=== PATIENT | female | born 1995 | race Caucasian/White ===

== ENCOUNTER → 2018-04-14 07:04 | Observation (INO) ==
[2018-04-14 05:56] LABS: Amphetamine Screen,Urine Negative ng/mL (Cutoff=1000); Barbiturate Screen,Urine Negative ng/mL (Cutoff=200); Benzodiazepines Screen,Urine Negative ng/mL (Cutoff=200); Cannabinoid Screen,Urine Negative ng/mL (Cutoff = 50); Cocaine Screen,Urine Negative ng/mL (Cutoff= 300); Opiate Screen,Urine Negative ng/mL (Cutoff=300); Phencyclidine Screen,Urine Negative ng/mL (Cutoff=25)
--- NOTE | 2018-04-14 08:16 | Discharge Summary ---
Date of Encounter: 04/14/18 Time of Encounter: 08:12 - Discharge Diagnosis (1) 37 weeks gestation of Priority: Primary Status: Acute Comments: Admit to observation for labor evaluation Patient with complaint of some right sided pain. Irregular contractions noted, cervix FT per RN exam Patient has an appointment for routine care this morning at 0800, will keep this appointment. Normal Vital signs Follow up as scheduled in office (2) NST (non-stress test) reactive Priority: Secondary Status: Acute Comments: 135 bpm, moderate variability, +15x15 accels, no decels. - Discharge Medications Home Medications: Ferrous Sulfate [Iron] 325 mg PO DAILY 04/14/18 [History] Vits96/Iron Fum/Folic [ Tablet] 1 each PO DAILY 04/14/18 [History] valACYclovir [Valtrex] 500 mg PO DAILY 04/14/18 [History] Allergies/Adverse Reactions: 3 Allergy/AdvReac Type Severity Reaction Status Date / Time No Known Allergies Allergy Verified 04/14/18 05:28 Data Procedures and tests throughout hospitalization: Laboratory Tests 04/14/18 05:35 Urine Opiates Screen Negative Ur Barbiturates Screen Negative Ur Phencyclidine Scrn Negative Ur Amphetamines Screen Negative U Benzodiazepines Scrn Negative Urine Cocaine Screen Negative U Marijuana (THC) Screen Negative Ur Drug Screen Interp See Below Labs on day of discharge: Labs from last 24 hours 04/14/18 05:35 Urine Opiates Screen Negative Ur Barbiturates Screen Negative Ur Phencyclidine Scrn Negative Ur Amphetamines Screen Negative U Benzodiazepines Scrn Negative Urine Cocaine Screen Negative U Marijuana (THC) Screen Negative Ur Drug Screen Interp See Below Date of admission: 04/14/18 05:23 Discharging clinician: Susy Yancey Anticipated date of discharge: 04/14/18 - Patient Status Disposition: Home, Self-Care Condition: Good Functional capacity at discharge: independent ambulation Overall status at discharge: patient is progressing back to baseline - Discharge Instructions Additional Instructions: LABOR AND DELIVERY DISCHARGE INSTRUCTIONS Signs and Symptoms to be Reported to your Doctor Immediately: * Sudden gush, continuous or intermittent lead of fluid from vagina (note the time of gush and color of fluid) * Onset of bright red vaginal bleeding with or without pain (if you had a vaginal exam during this visit you may notice some dark red spotting. This is normal.) * Contractions that are 5 minutes apart (from the beginning of one contraction to the beginning of the next) and last 45-60 seonds; contractions that you can no longer walk, talk or laugh through. * A change in the baby's activity. This could be an increase or decrease in activity. * Severe headache which does not go away with tylenol. * Sudden swelling in the face, hands, arms and/or legs. * Upper abdominal pain - sometimes associated with heartburn or nausea and is not relieved by Maalox, Mylanta or Tums. * Kick Counts __ One hour after a meal, lay down on one side in a quiet place. Count the number of time the baby moves during an hour. If less than 6 movements, notify your physician Diet: *Force fluids, 8 to 10 tall glasses of fluid per day - may include popsicles and jello *Limit caffeine - this includes chocolate, coffee, tea, any soft drink containing such as all leon, Satish Yellow and Mountain Dew KEEP APPOINTMENT THIS MORNING IN THE OB OFFICE AT 8:00 AM - Diet and Activity Activity: resume usual activities as tolerated Diet: regular diet Hospital Course [employer] Hospital course: Patient arrived to unit with complaint of right sided abdominal pain which she states has now mostly subsided. She reports positive movement and denies bleeding and vaginal leakage. She has a reactive NST this morning and rare uterine contractions noted on monitor. Her cervix is FT per RN exam. Patient will be discharged this morning with follow up in office as scheduled at 0800. Time Attestation: Total time spent providing and/or coordinating discharge services: Time Spent: Less than 30 minutes Exam - Other Additional findings: Assessment completed by RN - VTE Reasons for not Prescribing Prophylaxis: Treatment not Indicated - Low risk for VTE
== END | disposition home or self-care (01) ==
LOC: 1NENULAB
PROVIDERS: ADMIT Registered Nurse; ATTEND Registered Nurse

== ENCOUNTER → 2022-01-11 03:36 | Observation (INO) | END | disposition home or self-care (01) | LOC: 1NENULAB | PROVIDERS: ADMIT Advanced Practice Midwife; ATTEND Advanced Practice Midwife ==